=== PATIENT | female | born 1985 | race American Indian/Alaskan Native ===

== ENCOUNTER 2016-08-06 16:30 | Emergency (ER) | payer SELFPAY ==
[2016-08-06 18:36] VITALS: BP 148/98
--- NOTE | 2016-08-07 03:37 | Emergency Department Report ---
Entered by IBRAHIMA FARRIS, acting as scribe for DM SAUL NP. ED Rash HPI - HPI Chief Complaint: Animal Bite Stated Complaint: SEVERE LEG OUT BREAK Time Seen by Provider: 08/06/16 19:42 Duration: 2 Days Rash Symptoms: Yes Itching, No Facial Swelling, No Tongue/Oral Swelling, No Breathing Difficulties, No Choking Sensation, No Wheezing/Dyspnea, No Peeling, No Blistering, No Fever, No Lightheaded, No Malaise, No Myalgias Severity: moderate Other History: 30 year old female with no significant PMHx presents to the ED c/ o of a rash on bilateral legs that began 2 days ago. Patient states the rash has spreaded to her upper extremities. Associated symptoms include itching and pain to affected areas, but she denies numbness, tingling, fever, chills, nausea , vomiting, SOB, and difficulty breathing. Rates pain a 7/10 in severity. Denies any changes to perfumes or soap. Notes applying OTC calamine lotion and Tea Tree Oil with no relief. NKDA. ED Review of Systems ROS: Stated complaint: SEVERE LEG OUT BREAK Other details as noted in HPI Comment: All other systems reviewed and negative Constitutional: denies: chills, fever, other (tingling) Respiratory: denies: cough, orthopnea, shortness of breath, SOB with exertion, SOB at rest, stridor Cardiovascular: denies: chest pain, dyspnea on exertion, orthopnea Gastrointestinal: denies: nausea, vomiting Musculoskeletal: denies: back pain Skin: rash (bilateral legs that spreaded to upper extremeities) Neurological: denies: numbness Psychiatric: denies: anxiety, depression Hematological/Lymphatic: denies: easy bleeding, easy bruising ED Past Medical Hx - Past Medical History Previous Medical History?: No - Surgical History Past Surgical History?: No - Social History Smoking Status: Current Every Day Smoker Substance Use Type: Alcohol - Medications Home Medications: Home Medications Medication Instructions Recorded Confirmed Last Taken Type Prednisone [predniSONE] 40 mg PO QDAY 5 Days 08/06/16 Unknown Rx Sulfamethoxazole/Trimethoprim 1 each PO BID 5 Days 08/06/16 Unknown Rx [Bactrim DS TAB] Rash Exam - Exam General: Vital signs noted. No distress. Alert and acting appropriately. GENERAL: The patient is a well-developed, well-nourished male in no apparent distress. Patient is alert and oriented x3. VITAL SIGNS: Stable HEENT: Head is normocephalic and atraumatic. Extraocular muscles are intact. Pupils are equal, round, and reactive to light and accommodation. Nares appeared normal. Mouth is well hydrated and without lesions. Mucous membranes are moist. Posterior pharynx clear of any exudate or lesions. NECK: Supple. No carotid bruits. No lymphadenopathy or thyromegaly. LUNGS: Clear to auscultation. HEART: Regular rate and rhythm without murmur. ABDOMEN: Soft, nontender, and nondistended. Positive bowel sounds. No hepatosplenomegaly was noted. EXTREMITIES: Without any cyanosis, clubbing, lesions or edema. NEUROLOGIC: Cranial nerves II through XII are grossly intact. PSYCHIATRIC: Flat affect, but denies suicidal or homicidal ideations. SKIN: Bilateral maculopapular rash with tenderness to touch and pruritus. HEENT: No Periorbital Edema, No Conjuctival Injection, No Chemosis, No Perioral Edema, No Tongue Edema, No Uvular Edema, No Compromised Airway, No Drooling Lungs: Yes Good Air Exchange, No Wheezes, No Ronchi, No Stridor, No Cough, No Labored Respirations, No Retractions, No Use of Accessory Muscles, No Other Abnormal Lung Sounds Heart: Yes Regular, No Murmur Skin: Yes Maculopapular Rash (prurutic rash on bilateral legs that spread to upper extremities), No Urticarial Rash, No Morbilliform rash, No Bulla(e), No Excoriations, No Weeping, No Tenderness, No Erythema, No Edema, No Encrustations , No Other Other: Positive: Abdomen Normal, Neurologic Normal, Musculoskeletal Normal ED Course Vital Signs 08/06/16 18:33 Temperature 98.5 F Pulse Rate 84 Respiratory 16 Rate Blood Pressure 148/98 O2 Sat by Pulse 100 Oximetry ED Medical Decision Making - Medical Decision Making ED course: 30-year-old female presents with bilateral lower extremity rash 1- patient received Solu-Medrol 40 mg IM in the ED. 2- due to the clinical findings of tenderness with erythema I'm concerned about a bacterial infection so patient is treated with Bactrim for 5 days. 3- I instructed the patient to follow up with her primary care doctor in 3-5 days or if symptoms worsen 4- I also notified the patient to take full course of antibiotic as prescribed. Patient also received prednisone 40 mg for 5 days. 5- I instructed the patient that she can take Benadryl [id number] as needed for itching 6- at the time of discharge the patient does not seem toxic or ill in appearance. No signs of any distress noted. Patient agrees to discharge treatment and plan. No further questions noted by patient. Critical care attestation.: If time is entered above; I have spent that time in minutes in the direct care of this critically ill patient, excluding procedure time. ED Disposition Clinical Impression: Pruritic erythematous rash Disposition: DISCHARGED TO HOME OR SELFCARE Is pt being admited?: No Does the pt Need Aspirin: No Condition: Stable Instructions: Acute Rash (ED) Additional Instructions: Take full course of antibiotics and prednisone as prescribed Follow-up with her primary care doctor in 3-5 days or worsening symptoms He rates the Benadryl [id number] as needed if symptoms of itching persist Prescriptions: Prednisone [predniSONE] 40 mg PO QDAY 5 Days Sulfamethoxazole/Trimethoprim [Bactrim DS TAB] 1 each PO BID 5 Days Referrals: PRIMARY CARE, [Primary Care Provider] - 3-5 Days [facility] [Outside] - 3-5 Days [facility] [Outside] - 3-5 Days VINI LOPEZ MD [Referring] - 3-5 Days MACARIO GOODSON MD [Referring] - 3-5 Days GWEN SALGADO MD [Referring] - 3-5 Days MARIELLE ALVES MD [Referring] - 3-5 Days Forms: Work/School Release Form(ED) This documentation as recorded by the KALEIGH gr JASMINE,accurately reflects the service I personally performed and the decisions made by me,DM SAUL, CORPORATE STAFF ACCOUNTANT.
== END 2016-08-06 21:12 | disposition home or self-care (01) ==
LOC: ED 16:30
DX: R21 Rash and other nonspecific skin eruption (principal); F17.200 Nicotine dependence, unspecified, uncomplicated
CPT/HCPCS: 96372; 99282; J2920

== ENCOUNTER 2016-10-04 01:04 | Emergency (ER) | payer SELFPAY ==
[2016-10-04 02:17] LABS: Basophils % (Auto) 0.5 % (0.0-1.8); Eosinophils % (Auto) 3.9 % (0.0-4.3); Hematocrit 36.9 % (30.3-42.9); Hemoglobin 12.4 gm/dl (10.1-14.3); Mean Corpuscular HGB Conc 34 % (30-34); Mean Corpuscular Hemoglobin 33 pg (28-32); Mean Corpuscular Volume 97 fl (79-97); Platelet Count 213 K/mm3 (140-440); Red Cell Distribution Width 14.2 % (13.2-15.2); White Blood Count 7.7 K/mm3 (4.5-11.0)
[2016-10-04 02:19] LABS: Alanine Aminotransferase 26 units/L (7-56); Albumin 4.7 g/dL (3.9-5); Albumin/Globulin Ratio 1.9 %; Alkaline Phosphatase 61 units/L (35-129); BUN/Creatinine Ratio 23.33; Blood Urea Nitrogen 14 mg/dL (7-17); Calcium 9.6 mg/dL (8.4-10.2); Carbon Dioxide 31 mmol/L (22-30); Glucose 87 mg/dL (65-100); Total Protein 7.2 g/dL (6.3-8.2)
[2016-10-04 02:20] LABS: Anion Gap 13 mmol/L; Chloride 102.7 mmol/L (98-107); Potassium 4.2 mmol/L (3.6-5.0); Sodium 142 mmol/L (137-145)
--- NOTE | 2016-10-04 03:26 | XRay Report ---
FINAL REPORT EXAM: XR CHEST ROUTINE 2V HISTORY: CHEST COMPARISON: None available. FINDINGS:: Frontal and lateral views of the chest obtained. Cardiac silhouette is within normal limits. No focal consolidation or effusion. No pneumothorax. Visualized bony thorax is grossly intact. IMPRESSION:: No acute findings.
[2016-10-04 04:43] VITALS: BP 121/62
--- NOTE | 2016-10-04 06:19 | Emergency Department Report ---
ED Chest Pain HPI - General Chief Complaint: Chest Pain Stated Complaint: CHSET PAIN, SOB, NUMBNESS Time Seen by Provider: 10/04/16 06:16 Source: patient, family Mode of arrival: Ambulatory Limitations: No Limitations - History of Present Illness Initial Comments: Patient complained of a right-sided chest pain that was augmented by a deep inspiration only. She denied cough she denied any shortness of breath. She denied taking the control pill. She states her father of what she appears to describe as consistent with a pulmonary embolism. Her chest pain is not currently present. She states that the reason why she actually came is because she had tingling in her right arm. She denied headache or focal weakness. The tingling was transient and is now resolved. MD Complaint: chest pain -: days(s) Onset: during rest Pain Location: right chest Pain Radiation: none Severity: mild Severity scale (0 -10): 0 Quality: aching Consistency: intermittent, now resolved Improves With: nothing Worsens With: inspiration (deep only) re: denies: nausea, vomting, diaphoresis, dyspnea, sense of impending doom Other Symptoms: denies: cough, fever, syncope Treatments Prior to Arrival: none Aspirin use within the Past 7 Days: (0) No - Related Data Previous Rx's Medication Instructions Recorded Last Taken Type Prednisone [predniSONE] 40 mg PO QDAY 5 Days 08/06/16 Unknown Rx Sulfamethoxazole/Trimethoprim 1 each PO BID 5 Days 08/06/16 Unknown Rx [Bactrim DS TAB] Allergies Allergy/AdvReac Type Severity Reaction Status Date / Time No Known Allergies Allergy Unverified 08/06/16 18:37 Heart Score - HEART Score History: Slightly suspicious EKG: Normal Age: < 45 Risk factors: No known risk factors Troponin: < normal limit HEART Score: 0 - Critical Actions Critical Actions: 0-3 pts:0.9-1.7%risk of adverse cardiac event.Candidate for discharge ED Review of Systems ROS: Stated complaint: CHSET PAIN, SOB, NUMBNESS Other details as noted in HPI Constitutional: denies: chills, fever Eyes: denies: eye pain, eye discharge, vision change ENT: denies: ear pain, throat pain Respiratory: denies: cough, shortness of breath, wheezing Cardiovascular: as per HPI, chest pain. denies: palpitations Endocrine: no symptoms reported Gastrointestinal: denies: abdominal pain, nausea, diarrhea Genitourinary: denies: urgency, dysuria, discharge Musculoskeletal: denies: back pain, joint swelling, arthralgia Skin: denies: rash, lesions Neurological: denies: headache, weakness, paresthesias Psychiatric: denies: anxiety, depression Hematological/Lymphatic: denies: easy bleeding, easy bruising ED Past Medical Hx - Past Medical History Previous Medical History?: No - Surgical History Past Surgical History?: No - Social History Smoking Status: Current Every Day Smoker Substance Use Type: None - Medications Home Medications: Home Medications Medication Instructions Recorded Confirmed Last Taken Type Prednisone [predniSONE] 40 mg PO QDAY 5 Days 08/06/16 Unknown Rx Sulfamethoxazole/Trimethoprim 1 each PO BID 5 Days 08/06/16 Unknown Rx [Bactrim DS TAB] ED Physical Exam - General Limitations: No Limitations General appearance: alert, in no apparent distress - Head Head exam: Present: atraumatic, normocephalic - Eye Eye exam: Present: normal appearance - ENT ENT exam: Present: mucous membranes moist - Neck Neck exam: Present: normal inspection - Respiratory Respiratory exam: Present: normal lung sounds bilaterally. Absent: respiratory distress - Cardiovascular Cardiovascular Exam: Present: regular rate, normal rhythm. Absent: systolic murmur, diastolic murmur, rubs, gallop - GI/Abdominal GI/Abdominal exam: Present: soft, normal bowel sounds. Absent: distended, tenderness, guarding, rebound, rigid - Extremities Exam Extremities exam: Present: normal inspection, full ROM, normal capillary refill. Absent: tenderness, pedal edema, joint swelling, calf tenderness - Back Exam Back exam: Present: normal inspection - Neurological Exam Neurological exam: Present: alert, oriented X3, CN II-XII intact. Absent: motor sensory deficit - Psychiatric Psychiatric exam: Present: normal affect, normal mood - Skin Skin exam: Present: warm, dry, intact, normal color. Absent: rash ED Course Vital Signs 10/04/16 10/04/16 01:23 04:41 Temperature 97.8 F 98 F Pulse Rate 70 60 Respiratory 14 18 Rate Blood Pressure 127/85 Blood Pressure 127/85 121/62 [Left] O2 Sat by Pulse 100 100 Oximetry - Reevaluation(s) Reevaluation #1: Patient was informed that we needed to work her pain up further by getting a D- dimer test and the implications thereof. She expressed understanding. Nonetheless she eloped without further evaluation. 10/04/16 06:53 LLOYD score - Lloyd Score Age > 65: (0) No Aspirin use within the Past 7 Days: (0) No 3 or more CAD Risk Factors: (0) No 2 or more Angina events in past 24 hrs: (0) No Known CAD with more than 50% Stenosis: (0) No Elevated Cardiac Markers: (0) No ST Deviation Greater than 0.5mm: (0) No LLOYD Score: 0 ED Medical Decision Making - Lab Data Result diagrams: 10/04/16 01:37 10/04/16 01:37 Laboratory Results - last 24 hr 10/04/16 10/04/16 10/04/16 01:37 01:37 01:37 WBC 7.7 RBC 3.80 Hgb 12.4 Hct 36.9 MCV 97 MCH 33 H MCHC 34 RDW 14.2 Plt Count 213 Lymph % (Auto) 25.0 [place] % (Auto) 7.2 Eos % (Auto) 3.9 Baso % (Auto) 0.5 Lymph # 1.9 [place] # 0.6 Eos # 0.3 Baso # 0.0 Seg Neutrophils % 63.4 Seg Neutrophils # 4.9 Sodium 142 Potassium 4.2 Chloride 102.7 Carbon Dioxide 31 H Anion Gap 13 BUN 14 Creatinine 0.6 L Estimated GFR > 60 BUN/Creatinine Ratio 23.33 Glucose 87 Calcium 9.6 Total Bilirubin 0.30 AST 20 ALT 26 Alkaline Phosphatase 61 Troponin T Total Protein 7.2 Albumin 4.7 Albumin/Globulin Ratio 1.9 HCG, Qual Negative 10/04/16 01:37 WBC RBC Hgb Hct MCV MCH MCHC RDW Plt Count Lymph % (Auto) [place] % (Auto) Eos % (Auto) Baso % (Auto) Lymph # [place] # Eos # Baso # Seg Neutrophils % Seg Neutrophils # Sodium Potassium Chloride Carbon Dioxide Anion Gap BUN Creatinine Estimated GFR BUN/Creatinine Ratio Glucose Calcium Total Bilirubin AST ALT Alkaline Phosphatase Troponin T < 0.010 Total Protein Albumin Albumin/Globulin Ratio HCG, Qual - EKG Data -: EKG Interpreted by Co EKG shows normal: sinus rhythm, axis, intervals, QRS complexes, ST-T waves Rate: normal - EKG Data Interpretation: normal EKG - Radiology Data Radiology results: report reviewed Critical care attestation.: If time is entered above; I have spent that time in minutes in the direct care of this critically ill patient, excluding procedure time. ED Disposition Clinical Impression: Right-sided chest pain Disposition: ELOPED Is pt being admited?: No Does the pt Need Aspirin: No Condition: Stable Instructions: Chest Pain (ED) Referrals: PRIMARY CARE, [Primary Care Provider] - 3-5 Days Time of Disposition: 06:54
== END 2016-10-04 06:59 | disposition left against medical advice (07) ==
LOC: ED 01:04
DX: R07.89 Other chest pain (principal); F17.200 Nicotine dependence, unspecified, uncomplicated
CPT/HCPCS: 36415; 71020; 80053; 84484; 84703; 85025; 93005; 93010